=== PATIENT | female | born 2000 | race Two or more races ===

== ENCOUNTER 2024-03-10 18:48 | Emergency (ER) | payer OTHER ==
[~2024-03-10] VITALS: Ht 162.6 cm; Wt 65.8 kg
[2024-03-10] MEDS ORDERED: DICLOFENAC SODI75 MG PO (23:00)
== END 2024-03-10 23:41 ==
LOC: ER 18:49
DX: R10.2 Pelvic and perineal pain (principal); Z88.8 Allergy status to other drugs, medicaments and biological substances; N83.201 Unspecified ovarian cyst, right side